=== PATIENT | female | born 1965 | race Hispanic/Latino ===

== ENCOUNTER → 2017-05-03 | Outpatient (CLI) | payer OTHER | END | disposition home or self-care (01) | LOC: RAD 08:06 | DX: M51.37 Other intervertebral disc degeneration, lumbosacral region (principal); M12.88 Other specific arthropathies, not elsewhere classified, other specified site; M89.29 Other disorders of bone development and growth, multiple sites; M54.5 Low back pain | CPT/HCPCS: 72131 ==

== ENCOUNTER 2017-07-14 04:55 | Emergency (ER) | payer OTHER ==
[~2017-07-14] VITALS: Ht 157.5 cm; Wt 61.4 kg
[2017-07-14 05:43] LABS: HEMATOCRIT 36.8 % (36.0-46.0); HEMOGLOBIN 12.4 G/DL (11.9-15.5); MCH 30.2 PG (29.0-34.0); MCHC 33.7 G/DL (30.0-36.0); MCV 89.5 FL (83-99); PLATELET COUNT 294 K/uL (156-360); RBC DIS.WIDTH-CV 12.2 % (11.8-14.6); RBC DIS.WIDTH-SD 40.1 % (39-53); RED BLOOD COUNT 4.11 M/uL (3.80-5.20); WHITE BLOOD COUNT 11.4 K/uL (4.1-10.2)
[2017-07-14 05:44] LABS: CHLORIDE 108 mEq/L (99-109); POTASSIUM 4.1 mEq/L (3.7-5.4); SODIUM 142 mEq/L (136-147)
[2017-07-14 05:46] LABS: GLUCOSE 120 mg/dL (70-99)
[2017-07-14 05:50] LABS: CREATININE 0.7 mg/dL (0.6-1.3); GFR ESTIMATE (CALCULATED) > 59 mL/min/; UREA NITROGEN (BUN) 22 mg/dL (9-23)
[2017-07-14] MEDS ORDERED: TYLENOL WITH C1 EACH PO (11:00)
[2017-07-14] MEDS ORDERED: PROTONIX40 MG PO (11:00)
[2017-07-14 11:41] VITALS: BP 112/48
== END 2017-07-14 11:46 | disposition home or self-care (01) ==
LOC: EME 04:55
DX: K29.81 Duodenitis with bleeding (principal); K21.9 Gastro-esophageal reflux disease without esophagitis; M19.90 Unspecified osteoarthritis, unspecified site
CPT/HCPCS: 74022; 74177; 80048; 85027; 86850; 86900; 86901; 99281; 99285; J2405; J3010; J7030